=== PATIENT | female | born 1960 | race Caucasian/White ===

== ENCOUNTER 2017-10-19 18:58 | Emergency (ER) | payer SELFPAY ==
[~2017-10-19] VITALS: Ht 157.5 cm; Wt 58.1 kg
[2017-10-19] MEDS ORDERED: Imitrex4 MG/0.5 M SQ (19:20)
[2017-10-19] MEDS ORDERED: Amoxicillin500 MG PO (19:32)
[2017-10-19] MEDS ORDERED: PERIDEX15 ML MM (19:32)
== END 2017-10-19 19:39 | disposition home or self-care (01) ==
LOC: ER 18:58
DX: K08.89 Other specified disorders of teeth and supporting structures (principal); Z88.5 Allergy status to narcotic agent; Z88.8 Allergy status to other drugs, medicaments and biological substances; Z79.899 Other long term (current) drug therapy; Z79.2 Long term (current) use of antibiotics; F17.200 Nicotine dependence, unspecified, uncomplicated
CPT/HCPCS: 99283